=== PATIENT | female | born 1985 | race Caucasian/White ===

== ENCOUNTER → 2023-11-06 09:33 | Outpatient (CLI) | payer OTHER, SELFPAY ==
--- NOTE | 2023-11-06 09:37 | DI.RAD.S_ITS ---
PROCEDURE: FL BARIUM SWALLOW W SPEECH INDICATIONS: DIFF SWALLOWING,SENSATION OF FOREIGN BODY COMPARISON: None. TECHNIQUE: Examination was conducted in conjunction with speech pathology per standard protocol. In the lateral projection, filming was performed of the patient swallowing. AP projection filming may also be performed with patient swallowing. COMPARISON: FINDINGS: Function: The oral preparatory phase appears normal, with proper containment. The subsequent oral propulsive phase, pharyngeal phase, and esophageal phase of swallowing also appear normal with all proffered substances. No laryngotracheal penetration or aspiration. No pathologic vallecular pooling. Morphology: No cricopharyngeal bar is identified. No cervical esophageal webs. No Zenker's diverticulum. No strictures. Normal passage of a barium tablet. IMPRESSION: No aspiration. Please see separately dictated speech pathologist's report. Dictated by: Troy Boland M.D. on 11/06/2023 at 17:05 Approved by: Troy Boland M.D. on 11/06/2023 at 17:07
--- NOTE | 2023-11-06 12:33 | ST.SWALLOW ---
Visit Care Team Role Provider Type Alia Woodward PA-C Attending Provider Non-Staff Primary Care Provider Referring Provider Specialty: Medical Address: [facility] Nirali Saha, [facility] [id number], [place], [address] Email: Modified Barium Swallow Study MID LEVEL PRACTITIONER Modified Barium Swallow Study Start: 11/06/23 10:20 Freq: Status: Active Protocol: Document 11/06/23 11:02 LNK (Rec: 11/06/23 11:30 LNK [id number]) Modified Barium Swallow Study Total Time Visit Start Time 09:45 Visit Stop Time 10:15 Total Visit Minutes 30 Referral Referring Physician HAYDE Arora Reason for Referral globus sensation; dysphagia Setting Setting Outpatient Care Patient Information Identification Type Name,Date of Patient History Pt was seen for a Modified Barium Swallow Study secondary to c/o globus sensation when she swallows. Pt reports tightness around her throat and a feeling of pills, foods getting stuck near her laryngeal area. Pt denied difficulty swallowing liquids. Pt denied any neurological diagnoses or head/neck injuries that may be related. Pt did report a PMH hat included GERD and hiatal hernia Patient Positioning Position View Lat-A/P Imaging Lateral View Textures Administered Trials Presented Thin Liquid via Spoon (IDDSI 0 ),Thin Liquid via Cup (IDDSI 0 ),Extremely Thick Liquid via Spoon (IDDSI 4),Easy to Chew ( IDDSI 7) Barium Tablet Yes The IDDSI Framework Protocol: IDDSI.1 Oral Impairment Source: The Modified Barium Swallow Impairment Profile (MBSImP??) Lip Closure No labial escape Tongue Control During Bolus Hold Cohesive bolus between tongue to palatal seal Bolus Preparation/Mastication Timely & efficient chewing & mashing Bolus Transport/Lingual Motion Brisk tongue motion Oral Residue Complete oral clearance Initiation of Pharyngeal Swallow Bolus head in valleculae Additional Oral Impairment Observations *Oral phase, OME and DKS were observed to be WNL. *Dentition natural and in good hygiene *Mastication observed with rotary chew pattern. *Good bolus formation, control and AP transition. Pharyngeal Impairment Source: The Modified Barium Swallow Impairment Profile (MBSImP??) Soft Palate Elevation No bolus between soft palate & pharyngeal wall Laryngeal Elevation Comp.sup.move.thyroid cart.w/ comp.approx.arytenoids to epiglot petiole Anterior Hyoid Excursion Complete anterior movement Epiglottic Movement Complete inversion Laryngeal Vestibular Closure Complete; no air/contrast in laryngeal vestibule Pharyngeal Stripping Wave Present - complete Pharyngoesophageal Segment Opening Complete distention & complete duration; no obstruction of flow Tongue Base Retraction No contrast between tongue base & posterior pharyngeal wall Pharyngeal Residue Complete pharyngeal clearance Additional Pharyngeal Impairment Pharyngeal phase observed to Observations be WNL A/P View Textures Administered Trials Presented Thin Liquid via Cup (IDDSI 0), Regular (IDDSI 7) The IDDSI Framework Protocol: IDDSI.1 A/P View Observations Pharyngeal Contraction Complete Esophageal Clearance Upright Position Complete clearance; esophageal coating Vocal Fold Function Good Esophageal Function WFL,Reverse Peristalsis Additional A-P Observations Esophageal phase appeared to be WFL. Some reverse peristalsis noted with liquid Clinical Impressions Dysphagia Type WNL Patient Appropriate for Therapy No Recommendations Diet Comments No changes in diet recommended
== END ==
LOC: RAD 09:36
PROVIDERS: PCP Physician Assistant; Referring Provider Physician Assistant; Visit Provider Physician Assistant
DX: R13.10 Dysphagia, unspecified (principal); R19.8 Other specified symptoms and signs involving the digestive system and abdomen
CPT/HCPCS: 74230; 92610